=== PATIENT | female | born 1960 | race Caucasian/White ===

== ENCOUNTER 2018-05-10 00:08 | Emergency (ER) | payer SELFPAY ==
[2018-05-10] MEDS: HYDROCODONE/APAP (5/325) TAB PO (01:17)
[2018-05-10] MEDS: DIAZEPAM 5 MG TAB PO (01:17)
== END 2018-05-10 03:56 | disposition home or self-care (01) ==
LOC: FTE 00:08
DX: S16.1XXA Strain of muscle, fascia and tendon at neck level, initial encounter (principal); M62.838 Other muscle spasm; R51 Headache; I10 Essential (primary) hypertension; V89.2XXA Person injured in unspecified motor-vehicle accident, traffic, initial encounter
CPT/HCPCS: 70450; 72125; 81025; 99284-25